=== PATIENT | female | born 1980 | race Caucasian/White ===

== ENCOUNTER 2017-03-27 15:30 | Emergency (ER) | payer OTHER ==
[2017-03-27 15:46] VITALS: BP 109/62
--- NOTE | 2017-03-27 15:49 | UC ---
Complaint Female HPI - HPI Summary HPI Summary: 36 y/o female presents to the urgent care c/o burning, increase frequency and pressure on urination for past 2 days. Pt has not taking anything to alleviate symptoms. Pt denies fever, lower back pain, abdominal pain, N/V/D, chest pain, vaginal discharge or Hx of STD's. LMP about 1 year ago with IUD. Pt has not other complains - History Of Current Complaint Chief Complaint: UCGU Stated Complaint: URINARY Time Seen by Provider: 03/27/17 15:48 Hx Obtained From: Patient Hx Last Menstrual Period: MIRENA ?: No Onset/Duration: Gradual Onset, Lasting Days - 2 days Timing: Constant Severity Initially: Mild Severity Currently: Moderate Pain Intensity: 5 Pain Scale Used: 0-10 Numeric Radiates to: no radiation Character: Burning Aggravating Factor(s): Urination Associated Signs And Symptoms: Positive: Negative. Negative: Fever, Back Pain, Vaginal Bleeding/Discharge, Vaginal Discharge, Vomiting(# Of Episodes =), Genital Swelling, Genital Blisters - Risk Factors Ectopic Risk Factor: Negative, Maternal Age ^ 30, IUD Use Ovarian Torsion Risk Factor: Negative - Allergies/Home Medications Allergies/Adverse Reactions: Allergies Allergy/AdvReac Type Severity Reaction Status Date / Time cold temperatures Allergy Hives Uncoded 03/27/17 15:46 PMH/Surg Hx/FS Hx/Imm Hx Previously Healthy: Yes Endocrine History: Dyslipidemia - diet control Other Endocrine History: gestational DM, - Surgical History Surgical History: Yes Surgery Procedure, Year, and Place: tonsillectomy, C SECTION 03/21/13. FATTY TUMOR REMOVED FROM [facility]--2014 - Family History Known Family History: Positive: Hypertension, Diabetes Family History: none - Social History Occupation: Employed Full-time Lives: With Family Alcohol Use: Occasionally Substance Use Type: None Smoking Status (MU): Current Every Day Smoker Type: Cigarettes Amount Used/How Often: 1/2 pack day Length of Time of Smoking/Using Tobacco: ON AND OFF APPROX 20 YRS Have You Smoked in the Last Year: Yes Review of Systems Constitutional: Negative Skin: Negative Eyes: Negative ENT: Negative Respiratory: Negative Cardiovascular: Negative Gastrointestinal: Negative Genitourinary: Dysuria, Frequency Motor: Negative Neurovascular: Negative Musculoskeletal: Negative Neurological: Negative Psychological: Negative All Other Systems Reviewed And Are Negative: Yes Physical Exam Triage Information Reviewed: Yes Appearance: Well-Appearing, No Pain Distress, Well-Nourished, Obese Vital Signs: Initial Vital Signs Temp 97.3 F 03/27/17 15:43 Pulse 61 03/27/17 15:43 Resp 16 03/27/17 15:43 BP 109/62 03/27/17 15:43 Pulse Ox 99 03/27/17 15:43 Vital Signs Reviewed: Yes Eye Exam: Normal Eyes: Positive: Conjunctiva Clear - PERRLA, EOMI ENT Exam: Normal ENT: Positive: Normal ENT inspection, Hearing grossly normal, Pharynx normal, TMs normal Dental Exam: Normal Neck exam: Normal Neck: Positive: Supple, Nontender, No Lymphadenopathy Respiratory Exam: Normal Respiratory: Positive: Chest non-tender, Lungs clear, Normal breath sounds, No respiratory distress Cardiovascular Exam: Normal Cardiovascular: Positive: RRR, No Murmur, Pulses Normal, Brisk Capillary Refill Abdominal Exam: Normal Abdomen Description: Positive: Nontender, No Organomegaly, Soft. Negative: CVA Tenderness (R), CVA Tenderness (L) Bowel Sounds: Positive: Present, Absent Musculoskeletal: Positive: Strength Intact, ROM Intact, No Edema Neurological Exam: Normal Psychological Exam: Normal Skin Exam: Normal Complaint Female Dx - Course Course Of Treatment: 36 y/o female presents to the urgent care c/o burning, increase frequency and pressure on urination for past 2 days. Pt has not taking anything to alleviate symptoms. Pt denies fever, lower back pain, abdominal pain, N/V/D, chest pain, vaginal discharge or Hx of STD's. LMP about 1 year ago with IUD. Hx obtained. UA ordered and ordered. Results: Positive leukosteraces 2+, Urine 3+H, ketones: 1+, protein:3+. Pt with UTI. test: negative. Pt Rx Macrodantin PO and Pyridium PO to alleviate symptoms of dysuria. Advised to increase fluids, and if not improvement of symptoms to f/u with her PCP or return to the urgent care. Pt understood and agreed, - Differential Dx/Diagnosis Differential Diagnosis/HQI/PQRI: Cervicitis, , Renal Colic, Sexually Transmitted Disease, Ureteral Stone, Urinary Tract Infection Provider Diagnoses: 1- Urinary tract infection. 2- Dysuria Discharge - Discharge Plan Condition: Stable Disposition: HOME Prescriptions: Nitrofurantoin Macrocrystals* [Macrodantin*] 100 mg PO BID #10 cap Phenazopyridine TAB* [Pyridium 100 mg TAB*] 100 mg PO TID #6 tab Patient Education Materials: Urinary Tract Infection in Women (ED) Referrals: Ibeth Buenrostro MD [Primary Care Provider] - If Needed Additional Instructions: 1- Please take Macrobid 100mg PO x 7 days. Pyridium 100mg PO TID x 2 days to alleviate urinary symptoms. Increase increase fluid intake. 2-If symptoms do not improve please return to the urgent care or f/u with her PCP.
== END 2017-03-27 16:17 | disposition home or self-care (01) ==
LOC: UCCORT 15:30
DX: N39.0 Urinary tract infection, site not specified (principal); R30.0 Dysuria; Z32.02 Encounter for pregnancy test, result negative; E78.5 Hyperlipidemia, unspecified; F17.210 Nicotine dependence, cigarettes, uncomplicated; E66.9 Obesity, unspecified
CPT/HCPCS: 81003; 84702; 87077; 87086; 99212; G0463

== ENCOUNTER 2019-01-02 14:33 | Emergency (ER) | payer OTHER ==
[2019-01-02 15:01] VITALS: BP 114/76
--- NOTE | 2019-01-02 15:07 | UC ---
Complaint Female HPI - HPI Summary HPI Summary: REPORTS DYSURIA, FOUL ODOR IN URINE AND INCR. FREQUENCY X3 DAYS. INTERMITTENT. NOTHING MAKES IT BETTER/WORSE - History Of Current Complaint Chief Complaint: UCGU Stated Complaint: URINARY COMPLAINT Time Seen by Provider: 01/02/19 15:01 Hx Obtained From: Patient Hx Last Menstrual Period: IUD-inconsistent ?: No Pain Intensity: 4 Pain Scale Used: 0-10 Numeric Character: Sharp Aggravating Factor(s): Urination Alleviating Factor(s): Nothing - Allergies/Home Medications Allergies/Adverse Reactions: Allergies Allergy/AdvReac Type Severity Reaction Status Date / Time cold temperatures Allergy Hives Uncoded 03/27/17 15:46 Home Medications: Home Medications Multivitamin [Multiple Vitamins] 1 tab PO DAILY 01/02/19 [History Confirmed ] PMH/Surg Hx/FS Hx/Imm Hx - Additional Past Medical History Additional PMH: HAS IUD, NO CHRONIC CONDITIONS. - Surgical History Surgical History: Yes Surgery Procedure, Year, and Place: tonsillectomy, C SECTION 03/21/13. FATTY TUMOR REMOVED FROM [facility]--2014 - Family History Known Family History: Positive: None, Hypertension, Diabetes Family History: none - Social History Alcohol Use: None Substance Use Type: None Smoking Status (MU): Current Every Day Smoker Type: Cigarettes Amount Used/How Often: 1/2 pack day Length of Time of Smoking/Using Tobacco: ON AND OFF APPROX 20 YRS Have You Smoked in the Last Year: Yes Review of Systems All Other Systems Reviewed And Are Negative: Yes Constitutional: Negative: Fever, Chills Respiratory: Positive: Negative Cardiovascular: Positive: Negative Gastrointestinal: Negative: Vomiting, Nausea Genitourinary: Positive: Dysuria, Frequency, Other - foul odor urine. Negative : Hematuria, Urgency Musculoskeletal: Negative: Other: - denies back pain Physical Exam Triage Information Reviewed: Yes Appearance: Well-Appearing Vital Signs: Initial Vital Signs Temp 97.9 F 01/02/19 14:58 Pulse 69 01/02/19 14:58 Resp 18 01/02/19 14:58 BP 114/76 01/02/19 14:58 Pulse Ox 100 01/02/19 14:58 Vital Signs Reviewed: Yes Respiratory Exam: Normal Cardiovascular Exam: Normal Abdomen Description: Positive: Nontender, Soft. Negative: CVA Tenderness (R), CVA Tenderness (L) Complaint Female Dx - Course Course Of Treatment: Acute dysuria in an otherwise healthy patient. has iud. Vitals good. will r/ o sti. +leuks on UA only, but will send for cx. tx'ing based on symptoms. - Differential Dx/Diagnosis Differential Diagnosis/HQI/PQRI: Appendicitis, Sexually Transmitted Disease, Urinary Tract Infection Provider Diagnosis: Dysuria Discharge - Sign-Out/Discharge Documenting (check all that apply): Patient Departure All imaging exams completed and their final reports reviewed: No Studies - Discharge Plan Condition: Good Disposition: HOME Prescriptions: Nitrofurantoin Macrocrystals* [Macrodantin 100 mg*] 100 mg PO BID 5 Days #10 cap Patient Education Materials: Dysuria (ED) Referrals: Ibeth Buenrostro MD [Primary Care Provider] - Additional Instructions: If worsening please follow up with your medical provider. - Billing Disposition and Condition Condition: GOOD Disposition: Home
[2019-01-03 14:29] LABS: Neisseria gonorrhoeae (GC) RNA Negative (Negative)
--- NOTE | 2019-01-05 07:25 | UC ---
- Progress Note Progress Note: Urine culture reports reviewed today Escherichia coli more than 100,000 CFU/mL Sensitive to nitrofurantoin Patient on nitrofurantoin No change in plan. Course/Dx - Diagnoses Provider Diagnoses: Dysuria Discharge - Sign-Out/Discharge Documenting (check all that apply): Post-Discharge Follow Up All imaging exams completed and their final reports reviewed: No Studies - Discharge Plan Condition: Good Disposition: HOME Prescriptions: Nitrofurantoin Macrocrystals* [Macrodantin 100 mg*] 100 mg PO BID 5 Days #10 cap Patient Education Materials: Dysuria (ED) Referrals: Ibeth Buenrostro MD [Primary Care Provider] - Additional Instructions: If worsening please follow up with your medical provider. - Billing Disposition and Condition Condition: GOOD Disposition: Home
== END 2019-01-02 15:44 | disposition home or self-care (01) ==
LOC: UCCORT 14:33
DX: R30.0 Dysuria (principal); F17.210 Nicotine dependence, cigarettes, uncomplicated
CPT/HCPCS: 81003; 87077; 87086; 87186; 87491; 87591; 99212; G0463